=== PATIENT | female | born 1950 | race Caucasian/White ===

== ENCOUNTER 2021-10-29 12:55 | Outpatient (CLI) | payer OTHER, SELFPAY ==
[2021-10-29] VITALS (9 sets, daily range): BP systolic 122–165; BP diastolic 58–72; PULSE 56–61; RESP 12–24; TEMP 36.3; O2SAT 94–99
--- NOTE | 2021-10-29 12:58 | DI.RAD.S_ITS ---
PROCEDURE: PAIN L/S FACET INJ/BLK 1ST CHRISTOPH COMPARISON: [facility], CR, XR LUMBAR SPINE 2 OR 3 VIEWS, 06/22/2021, 14:51. INDICATIONS: SPONDYLOSIS FINDINGS: Fluoroscopic spot filming was performed to verify placement of spinal needles on both sides at the L4-L5 level and at the L5-S1 level, as labeled on the films. Appropriate location of the needle tips was confirmed by injection of iodinated contrast. IMPRESSION: Intraprocedural examination within normal limits. Dictated by: Kevin Faye M.D. on 10/29/2021 at 13:19 Approved by: Kevin Faye M.D. on 10/29/2021 at 13:21
[2021-10-29] MEDS: fentaNYL 100 MCG/2 ML INJ 50 MCG IV (13:37)
[2021-10-29] MEDS: MIDAZOLAM 5 MG/5 ML VIAL IV (13:40)
[2021-10-29] MEDS: IOPAMIDOL 15 ML VIAL 3 ML INJ (13:41)
[2021-10-29] MEDS: LIDOCAINE 1% 20 ML 10 ML INJ (13:43)
[2021-10-29] MEDS: BUPIVACAINE 0.5% (PF) VIAL 5 ML INJ (13:43)
[2021-10-29] MEDS: BETAMETHASONE 30 MG/5 ML MDV 12 MG INJ (13:44)
--- NOTE | 2021-10-29 13:53 | P.PCN_ITS ---
Date/Time/Diagnoses Date of procedure: 10/29/21 Time of procedure: 13:53 Pre-procedure diagnosis: 1. FACET ARTHROPATHY 2. AXIAL LBP 3. MULTILEVEL DDD Post-procedure diagnosis: same Procedure Notes Procedure: 1. FLUOROSCOPICALLY GUIDED CONTRAST CONTROLLED FACET JOINT INJECTIONS BILATERAL L4/5, L5/S1 Indications: Mary is referred by NARENDRA Reynolds for treatment of Axial LBP Physician: Duane Tejeda Total Fluoroscopy time (seconds): 9 Total sedation minutes: 13 Complications: none Procedure in detail & Post-procedure care: FINDINGS Multilevel Facet Arthropathy with Clinically significant axial LBP DESCRIPTION OF PROCEDURE Fluoroscopically guided, contrast-controlled bilateral L4/5, L5/S1 facet joint injections. Following review of allergy and review of potential side effects and complications, including, but not necessarily limited to, infection, allergic reaction, local tissue breakdown, stroke, temporary or permanent nerve injury, paralysis, and possible , the patient indicated that the patient understood and agreed to proceed. An informed consent document was signed by the patient, witnessed by a nurse, and placed in the patient's chart. Additionally, other treatment options including medications, modalities, and physical therapy were reviewed with the patient. After review of previous anaesthesic history and IV conscious sedation the arturo ent was deemed safe to proceed with today?s procedure with IV conscious sedation as ASA class II designation. Safety time-out was performed to confirm patient ID, procedure to be performed and site of procedure. IV sedation was accomplished with a combination of 5mg of Versed and 50mcg of Fentanyl was administered by the RN after DO order, titrated to patient comfort during the course of the procedure while the patient remained responsive to all verbal commands In the prone position, following sterile prep and drape of the lumbar region, the posterior aspect of the L4/5, L5/S1 facet joints were identified fluoroscopically. The skin was anesthetized via a 25-gauge 1.5inch needle with 1% lidocaine solution into the corresponding facet joints. At this point, a 22- gauge 3.5-inch spinal needle was atraumatically introduced and advanced under fluoroscopic guidance into the corresponding facet joints. Following negative aspiration, injections of approximately 0.2cc of Isovue 200 confirmed interarticular placement without vascular uptake. The identical procedure was then performed at the L4/5, L5/S1 facet joints on the left. Radiological data, including multiple fluoroscopic views of the lumbosacral spine, reveal a spinal needle at the L4/5, L5/S1 facet joints bilaterally. Subsequent views show flow of contrast material both superiorly and inferiorly within the joint space without vascular or intrathecal uptake. At this point, a total of 0.5cc including a mixture of 0.25cc Marcaine and 0.25cc betamethasone was injected without complication into each of the corresponding facet joints. The patient tolerated the procedure well without signs or symptoms of complications prior to transfer to the recovery area continued monitoring without incident. The patient was then transferred to the recovery area where they were observed for an appropriate period of time after the injection. The patient reported a VAS score of 7 prior to the procedure and a post- procedure VAS of 0. POST OP INSTRUCTIONS The patient was provided a Pain Log to continue to record their response to the target-specific procedure prior to follow-up visit with their referring physician. Additionally, specific post-injection care instructions and a contact number to our office were provided if concerns arise regarding possible complications associated with the procedure are suspected.
== END 2021-10-29 14:17 | disposition home or self-care (01) ==
LOC: RAD 12:57
PROVIDERS: PCP Nurse Practitioner Family; Referring Provider Physical Medicine & Rehabilitation; Visit Provider Physical Medicine & Rehabilitation
DX: M47.816 Spondylosis without myelopathy or radiculopathy, lumbar region (principal); M47.817 Spondylosis without myelopathy or radiculopathy, lumbosacral region; M51.36 Other intervertebral disc degeneration, lumbar region; M51.37 Other intervertebral disc degeneration, lumbosacral region
CPT/HCPCS: 64493; 64494; 99152; J0702; J2250; J3010

== ENCOUNTER 2023-07-08 13:42 | Inpatient (IN) | payer OTHER, SELFPAY ==
[2023-06-10 12:54] VITALS: BMI 30.4
[2023-07-08] VITALS (17 sets, daily range): BP systolic 122–154; BP diastolic 61–129; PULSE 52–89; RESP 11–97; TEMP 35.7–37.1; O2SAT 15–100; BMI 30.4
--- NOTE | 2023-07-08 | DI.RAD.S_ITS ---
PROCEDURE: XR LUMBAR SPINE 2-3V INDICATIONS: tlif l4-5 TECHNIQUE: Low resolution intraoperative fluoroscopic spot films were obtained COMPARISON: None. FINDINGS: Low resolution intraoperative fluoroscopic spot films show L L4-5 interbody fusion with posterior shalini and screw instrumentation in good position IMPRESSION: Fluoroscopic guidance Approved by: Keyon Fry M.D. on 07/08/2023 at 17:39
[2023-07-08] MEDS: LACTATED RINGERS 1,000 ML 84 ML IV ×2 (14:49→17:36)
--- NOTE | 2023-07-08 15:15 | PM.PREOP ---
Pre-operative Note COVID-19 Criteria for continued procedure: Expected advancement of disease process, Possibility delay results in more complex future surgery or treatment, Increased loss of function, Continuing or worsening of significant or severe pain, Deterioration of the patient's condition or overall health and Delay expected to result in less-positive ultimate med/surg outcome Interval Note History & Physical reviewed/Exam performed by Physician: Yes Changes to H&P: No
[2023-07-08] MEDS: CEFAZOLIN 2 GM/100 ML PREMIX 100 ML IV ×2 (16:10→23:35)
--- NOTE | 2023-07-08 16:19 | SUR.OPER ---
Prone on spine table, head in foam head support, padded chest and pelvic supports, gel pad at knees, lower legs supported by pillows; nipples, genitalia and toes free of pressure, arms secured on foam padded arm boards at <90 degrees abduction. Tape over blanket at thigh secured to table.
[2023-07-08] MEDS: BUPIVACAINE 0.25% (PF) 60 ML, EPINEPHrine 0.15 MG INJ (16:33)
[2023-07-08] MEDS: BUPIVACAINE LIPOSOME 266 MG/20 ML VIAL INJ (17:36)
--- NOTE | 2023-07-08 17:58 | P.OP_ITS ---
Operative Date/Time/Diagnoses Date of procedure: 07/08/23 Time of procedure: 15:00 Pre-op diagnosis: 1. L4-5 spinal stenosis with radiculopathy 2. Lumbar spondylosis with radiculopathy Post-op diagnosis: same Procedure & Clinicians Procedure: 1. L4-5 Postero-lateral and posterior interbody fusion 2. L4-5 interbody cage placement. 3. L4-5 decompressive laminectomy with bilateral facetecomies 4. L4-5 Posterior non-segmental instrumentation 5. Malcolm of bone marrow from iliac crest 6. Utilization of microsurgical technique and operating microscope Same procedure as scheduled: Yes Indications: Patient has been having chronic back pain and worsening lumbar radiculopathy. Patient failed multiple conservative management with worsening pain weakness and numbness in her lower extremity. Patient has been having difficulty performing activity of daily living. After discussing risks benefits of treatment options, patient elected proceed with surgery. Surgeon: Mae Pacheco Compliance Program Manager: Delphine Rasmussen Click Yes if Unassisted: No Anesthesia Type: General Operative Notes Closure Type: primary Specimen(s): none sent Prosthetic devices, grafts, tissues, transplants, or devices: Globus revolve screws, Rise cage Estimated Blood Loss (mL): 50 Blood products transfused: none Procedure in detail: Patient was seen in the preoperative area. Risks and benefits of the surgery was discussed with the patient. Informed consent was obtained from the patient and placed in the chart. Surgical site was marked. Patient was taken to the operative room. General anesthesia was administered. Prophylactic antibiotic was given to the patient less than 30 min before the incision was made. Patient was placed into a prone position on the Bill table. Patient's back was then prepped and draped in the sterile fashion. Time-out was performed at this time. Using AP and lateral C-arm imaging the interval between L4-5 was identified and marked on patient's back. A 2 inch incision 2 in from midline was made on the left side first. The fascia was incised in line with skin incision. Globus MARS retractors was placed inside the incision and docked onto the L4 lamina. Using microsurgical technique and operating microscope, a L4 laminectomy and L4-5 facetectomy was performed using a Kerrison rongeur. The laminectomy and facetectomy was performed in order to decompress patient's cauda equina as well as the nerve roots exiting at the L4-5 level. The disc space at L4-5 was identified. And a total diskectomy was performed at L4-5 level. The endplates were decorticated using a rasp and shaver. The total diskectomy and decortication was performed at L4-5 level in order to to accomplish a L4-5 fusion. The local bone from the laminectomy and facetectomy was saved for local bone grafting. After the total diskectomy and decortication was completed, Trifecta bone graft material was combined with local bone that was harvested earlier. At this time, a separate skin is incision was made over the iliac crest. A Jamshidi needle was inserted into the iliac crest through a separate skin incision. 5 cc of bone marrow aspiration was obtained through the separate skin incision using a Jamshidi needle from the iliac crest. The bone marrow aspiration was combined with local bone and the Trifecta bone grafting material. The bone grafting material was placed into the L4-5 interbody space along with a expandable cage. The cage was expanded to its maximum height using the torque limiting screwdriver. At this time a mirror image incision was made on the right side. The fascia was incised in line with the skin incision. Globus MARS retractor was inserted and docked onto the L4-5 posterolateral gutter. Using the power drill, posterior- lateral decortication was performed at L4-5 level until bleeding cortical bone was identified. The remaining bone grafting material was placed into the L4-5 posterior lateral gutter he order to accomplish posterolateral fusion at the L4- 5 level. Using the double C-arm technique, pedicle screws were placed into the L4-5 pedicles bilaterally. This was done by placing the Jamshidi needle into the pedicles, then placing the guidewires over the Jamshidi needle, and finally placing the cannulated screws over the guidewires bilaterally. After the pedicle screws were placed, 2 titanium rods was locked into the heads of the pedicle screws using locking caps and torque limiting screwdriver. After all the hardware was placed, and confirmed with AP and lateral C-arm imaging, the wound was then irrigated with sterile normal saline and packed with Ray-Claudia gauze for 3 min to accomplish hemostasis. After the gauze was removed the deep fascia was closed with #1 Vicryl suture. The subcutaneous layer was closed with 2-0 Vicryl. The skin was closed with skin zari. Patient tolerated the procedure well. There were no complications. The Operation could not have been safely performed without compromising the technical result or length of the procedure, without the assistance of a skilled assistant professor of biochemistry. The assistant professor of biochemistry was medically necessary for proper positioning, retraction and manipulation of instruments, proper exposure, surgical preparation, and manipulation of tissue. Complications: none Post-operative Condition: stable Disposition: PACU Plan for aftercare: Admit to inpatient hospital
[2023-07-08] MEDS: fentaNYL 100 MCG/2 ML INJ IV ×2 (18:15→18:26)
[2023-07-08] MEDS: hydrOXYzine 50 MG/ML INJ 25 MG IM (18:28)
[2023-07-08] MEDS: HYDROMORPHONE 1 MG INJ IV ×4 (18:33→19:04)
[2023-07-08] MEDS: ONDANSETRON 4 MG/2 ML INJ IV (18:38)
[2023-07-08] MEDS: ACETAMINOPHEN 325 MG TABLET 650 MG PO (20:27)
[2023-07-08] MEDS: hydrOXYzine pamoate 25 MG CAPSULE PO (20:28)
[2023-07-08] MEDS: OXYCODONE IR 10 MG TABLET PO (20:28)
[2023-07-08] MEDS: LACTATED RINGERS 1,000 ML 125 ML IV (20:47)
--- NOTE | 2023-07-08 21:02 | SUR.PHASEI ---
Pt transferred to floor via bed on 2L oyxgen by Priscilla OLIVAS after SBAR report called to Adele OLIVAS.
[2023-07-08] MEDS: HYDROMORPHONE 0.5 MG INJ IV (22:46)
[2023-07-09] MEDS: TRAZODONE 50 MG TABLET 25 MG PO (01:04)
[2023-07-09] MEDS: OXYCODONE IR 10 MG TABLET PO ×5 (01:04→15:08)
[2023-07-09] MEDS: hydrOXYzine pamoate 25 MG CAPSULE PO ×4 (01:04→15:07)
[2023-07-09 03:08] VITALS: BP 107/54; PULSE 66; RESP 20; O2SAT 94
[2023-07-09] MEDS: ACETAMINOPHEN 325 MG TABLET 650 MG PO ×2 (04:46→10:55)
[2023-07-09] MEDS: LACTATED RINGERS 1,000 ML 125 ML IV (05:44)
[2023-07-09] MEDS: HYDROMORPHONE 0.5 MG INJ IV ×2 (05:54→12:26)
[2023-07-09 06:08] VITALS: BP 114/57; PULSE 72; RESP 20; TEMP 36.2; O2SAT 96
[2023-07-09 07:40] VITALS: O2SAT 96
[2023-07-09 08:00] VITALS: BP 135/73; PULSE 79; RESP 17; TEMP 36.9; O2SAT 93
[2023-07-09] MEDS: AMLODIPINE 5 MG TABLET 10 MG PO (08:23)
[2023-07-09] MEDS: METOPROLOL ER 25 MG TABLET 12.5 MG PO (08:24)
[2023-07-09] MEDS: SPIRONOLACTONE 25 MG TABLET PO (08:24)
[2023-07-09] MEDS: CEFAZOLIN 2 GM/100 ML PREMIX 100 ML IV (08:25)
[2023-07-09] MEDS: CALCIUM CARBONATE 500 MG TAB PO ×2 (08:50→13:37)
[2023-07-09 09:55] VITALS: BP 123/59; PULSE 65
--- NOTE | 2023-07-09 10:15 | PT.IIE ---
Current Diagnoses Spondylolisthesis, lumbar region (07/08/23) Spinal stenosis, lumbar region with neurogenic claudication (07/08/23) Surgery Performed Operation Date: 07/08/23 14:45 Actual Procedures p L4-5 TLIF - Mae Pacheco MD Surgical History (Last Reviewed 07/09/23 @ 10:44 by Delphine Rasmussen PA-C) H/O elbow surgery H/O foot surgery H/O wrist surgery H/O: hysterectomy (~1987) History of cholecystectomy History of hernia surgery History of tracheostomy (05/12/10) Medical History (Last Reviewed 07/09/23 @ 10:44 by Delphine Rasmussen PA-C) Cardiomyopathy Chronic pain syndrome Facet arthropathy, lumbar History of anxiety History of bradycardia History of cognitive deficit (~02/06/19) History of depression History of drug dependence (~09/02/17) History of fibromyalgia History of gastroesophageal reflux (GERD) History of heart failure History of osteoporosis (~07/28/20) History of peritonitis (~2009) HTN (hypertension) Hx SBO (~03/29/15) Impingement syndrome of right shoulder Infected prosthetic mesh of abdominal wall Lumbar radiculopathy Ventricular bigeminy (~12/17/16) Physical Therapy Inpatient Evaluation/Re-Eval M1 PT/OT-IP Prior Functional Status Start: 07/09/23 13:13 Freq: NEEDED Status: Active Protocol: Document 07/09/23 10:15 AB (Rec: 07/09/23 13:37 AB [id number]) Medical Review Prior Functional Status Medical History Reviewed Yes Communication able to make needs known; Mobility and Gait pt stated that she is independent with all mobitlies and ambulation using a 4WW; occasionally ambulates without AD indoors but tends to furniture cruise Social History Household Members spouse Living Arrangements House Number of Floors (Floors) Two Floors Number of Stairs To Enter/Railing? not steps to enter but has 2 steps without rails from rec room to main level of the house Home Environment Standard Height Toilet,Walk in Shower Home Equipment Front Wheel Walker,Four Wheel Walker,Straight Cane,Shower Seat without Backrest,Grab Bars In Shower Additional Social History Comment pt stated that spouse has Alzheimer's disease and is limited to the assistance he can provide pt pt stated that her daughter can stay over the weekend to assist M2 PT-IP Current Condition Start: 07/09/23 13:13 Freq: NEEDED Status: Active Protocol: Document 07/09/23 10:15 AB (Rec: 07/09/23 13:37 AB [email or web address]) Physical Therapy Current Condition Current Condition Evaluation Date 07/09/23 Treatment Diagnosis s/p L4-5 TLIF; difficulty in walking Onset Date 07/08/23 M3 PT-IP Subjective Start: 07/09/23 13:13 Freq: NEEDED Status: Active Protocol: Document 07/09/23 10:15 AB (Rec: 07/09/23 13:37 AB [email or web address]) Subjective Physical Therapy Visit Type Type Initial Evaluation Visit Start Time 10:15 Visit Stop Time 11:00 Total Visit Minutes 45 Number of INSURANCE ASSOCIATE Visits 0 Physical Therapy Visit Comments Patient Comments agreeable to do PT; stated that spouse can assist him and daughter can come to assist but when asked for caregiver training, stated that spouse will not be able to assist and daughter can only assist over the weekend; refused SNF Therapy Pain Assessment Pain When Pain Assessed At Rest Pain Present Pain Present Pain Reported Location low back Intensity 6 Scale Used Numeric (0 - 10) Pain Management Techniques Distraction,Modification of Treatment,Re-positioning, Timing of Activity with Medications M4 PT-IP Mobility and Gait Start: 07/09/23 13:13 Freq: NEEDED Status: Active Protocol: Document 07/09/23 10:15 AB (Rec: 07/09/23 13:37 AB [email or web address]) PT-Bed Mobility Assessment Rolling Type of Rolling Log Rolling Level of Assist Minimal Assistance Supine to Sit Supine to Sit Minimal Assistance PT-Transfer Assessment Sit to and From Stand Sit to and from Stand Minimal Assistance,1 Person Assistance,Use of Upper Extremities Equipment Transfer Assistive Device Gait Belt,Front Wheeled Walker Orthotic/Prosthetic Devices or Brace: No Transfers Transfer Destination Chair Transfer Technique ambulated Transfer Ability Level of Assist Minimal Assistance,1 Person Assistance,Use of Upper Extremities Comments Mobility Comments pt educated on back precautions and log roll bed mobility. pt easily gets anxious and easily distracted. completed log roll supine to sit min A and max cues. able to sit on EOB CGA. completed sit to stand min A and max cues and ambulated towards the chair ~ 15 ft using FWW min A and max cues for steadiness and safety. pt agreed to sit up on the chair. positioned on the chair. call light and table placed within reach. pt initially stated that her spouse will be able to assist her and daughter also can come to assist if needed. informed pt that caregiver training is needed and pt stated that spouse will not be able to assist her and daughter also can only assist this weekend and that PT needs to do training with her and not spouse or daughter. educated pt on safety level of assistance needed at this time. informed regarding SNF rehab and pt refused. informed pt to call her daughter and ask daughter to come in for training and that her daughter might be able to assist her more that she thinks. pt agreed. nurse informed PT that daughter will be coming at 230pm today for training. set up caregiver training. pt stated that she will call her daughter to come. Gait Assessment Gait Gait Assistance Required: Minimum Assistance Distance (Feet) 15 Able to Maintain Weight Bearing Status Yes During Gait Assistive Devices Assistive Device Gait Belt,Front Wheeled Walker Orthotic/Prosthetic Devices or Brace: No Gait Deviations General Gait Pattern Decreased Stride Length, Decreased Feet Clearance,Step- to Gait Factors Limiting Gait Function Factors Limiting Gait Function Decreased Activity Tolerance, Decreased Sensation,Decreased Strength,Difficulty Following Directions,Limited Range of Motion,Pain,Poor Balance,Poor Safety Awareness PT-Balance Assessment Sitting Balance and Reactions Static Sitting Balance Ability Good Dynamic Sitting Balance Ability Good Standing Balance and Reactions Static Standing Balance Ability Fair Dynamic Standing Balance Ability Fair Device Used FWW M5 PT-IP Objective Assessments Start: 07/09/23 13:13 Freq: NEEDED Status: Active Protocol: Document 07/09/23 10:15 AB (Rec: 07/09/23 13:37 AB [email or web address]) Orientation Orientation/Cognition Level of Alertness Alert Orientation Name,Place,Situation Language Function Ability Hard of Hearing Safety Awareness Decreased Safety Awareness Memory Description Short Term Impaired Gross Range of Motion Lower Extremity ROM Assessment Within Functional Limits Strength Lower Extremity Strength Assessment Right Impaired Hip 3-/5 Knee 3+/5 Sensation Assessment Sensation Gross Sensation Right LE Impaired Sensation Description Numbness Comments Sensation Comments chronic R foot numbness per pt . Muscle Tone Muscle Tone WNL Yes M6 PT-IP Treatment Start: 07/09/23 13:13 Freq: NEEDED Status: Active Protocol: Document 07/09/23 10:15 AB (Rec: 07/09/23 13:37 AB [email or web address]) Physical Therapy Treatment Education Education Provided Precautions,Weight Bearing Status,Post-Op Packet,Safety M7 PT-IP Assessment and Plan Start: 07/09/23 13:13 Freq: NEEDED Status: Active Protocol: Document 07/09/23 10:15 AB (Rec: 07/09/23 13:37 AB [email or web address]) PT Summary Assessment and Plan Potential Rehabilitation Potential Fair Status of Condition at Evaluation Evolving Summary Impairments Pain,ROM,Strength,Balance, Coordination,Sensation,Tone, Cognition,Bed Mobility, Transfers,Gait,Activity Tolerance Assessment Summary pt is a 73 y/o female s/p L4-5 TLIF. pt currently requiring min A with mobility using FWW but requires max cues. pt is very anxious and easily distracted requring one step commands and redirection to task. pt stated that she does not have assistance at home but also refused to go to SNF. informed pt to ask her daughter to come in for training and maybe daughter will be willing to stay and assist her. Daughter set up to come in at 230pm for caregiver training. will continue to assess progress and determine safe dc paln. Goals Bed Mobility Goal Standby Assistance Transfer Goal Standby Assistance,Front Wheeled Walker Gait Goal Standby Assistance,Front Wheel Walker Gait Distance 150 Other Goals improve bed mobility, transfers, ambulation using FWW 250 ft mod I up/down 2 steps SPC/COIL REWIND MACHINE OPERATOR CGA Days to Meet Goals 5 Frequency of Treatment Frequency Of Treatment Twice a Day Treatment Plan Physical Therapy Treatment Plan Bed Mobility Training,Transfer Training,Gait Training, Therapeutic Exercise,Balance Retraining,Post Op Education, Discharge Planning,Hot or Cold Pack,Neuromuscular Re-ed, Coordination Retraining,Manual Therapy Precautions Lumbar Precautions Log Roll,No Twisting,Limit Bending,Lifting Restriction of 10 lbs,Gait Belt above Incisional Area Recommendations To Nursing Amount of Assist Needed 1 Person Assist Discharge Recommendations PT Discharge Recommendations Home with 16/05 Assist Available,Home Health,SNF Rehab,Home vs SNF Transportation Needs at Discharge Private Vehicle,Wheelchair/ Cabulance
--- NOTE | 2023-07-09 10:40 | P.DS_ITS ---
History of Present Illness History of Present Illness Date Patient Seen: 07/09/23 Chief complaint: TLIF Narrative: Patient is sitting up comfortably in bed this morning. She states she is not having much pain if she does not move. Since she was in much worse pain before surgery. She states she has not worked with physical therapy though she is feeling good and expects it to go well. She denies numbness and tingling to the distal extremities, denies nausea and vomiting. Discharge Providers Provider Date of admission: 07/08/23 13:42 Discharge Date: 07/09/23 Primary care physician: NARENDRA Abreu Consults: 07/08/23 19:56 Consult to Occupational Therapy Evaluate & Treat Comment: Physician Instructions: Evaluate and treat Consult to Physical Therapy Evaluate & Treat Comment: Physician Instructions: Evaluate and Treat 07/08/23 21:38 Consult to Dietitian, Adult Routine Comment: Reason For Exam: unintentional weight loss, no appetite Consult to Water Resources Business Segment Leader Routine Comment: Discharge provider: Delphine Rasmussen PA-C Summary Hospital Course Discharge Diagnosis: Status post 1 level TLIF Hospital Course: Operative Date/Time/Diagnoses Date of procedure: 07/08/23 Time of procedure: 15:00 Pre-op diagnosis: 1. L4-5 spinal stenosis with radiculopathy 2. Lumbar spondylosis with radiculopathy Post-op diagnosis: same Procedure & Clinicians Procedure: 1. L4-5 Postero-lateral and posterior interbody fusion 2. L4-5 interbody cage placement. 3. L4-5 decompressive laminectomy with bilateral facetecomies 4. L4-5 Posterior non-segmental instrumentation 5. Mason of bone marrow from iliac crest 6. Utilization of microsurgical technique and operating microscope Same procedure as scheduled: Yes Indications: Patient has been having chronic back pain and worsening lumbar radiculopathy. Patient failed multiple conservative management with worsening pain weakness and numbness in her lower extremity.? Patient has been having difficulty performing activity of daily living.? After discussing risks benefits of treatment options, patient elected proceed with surgery. Surgeon: Mae Pacheco Refractory Worker: Delphine Rasmussen Click Yes if Unassisted: No Anesthesia Type: General Operative Notes Closure Type: primary Specimen(s): none sent Prosthetic devices, grafts, tissues, transplants, or devices: Globus revolve screws, Rise cage Estimated Blood Loss (mL): 50 Blood products transfused: none Exam Vital Signs (past 8 hours): - 07/09/23 03:08 07/09/23 06:08 07/09/23 07:40 Temperature 97.1 F L Pulse Rate 66 72 Respiratory Rate 20 20 Blood Pressure 107/54 L 114/57 L Pulse Oximetry 94 96 96 Oxygen Delivery Method Nasal Cannula Oxygen Flow Rate 1 1 1 07/09/23 08:00 07/09/23 08:24 07/09/23 09:55 Temperature 98.4 F Pulse Rate 79 65 Respiratory Rate 17 Blood Pressure 135/73 123/59 L Pulse Oximetry 93 Oxygen Delivery Method Room Air Oxygen Flow Rate 1 Oxygen Delivery Method Room Air Oxygen Flow Rate 1 Narrative Exam Narrative: Pleasant 73-year-old female. Awake, alert, and oriented. Intraoperative bandage intact, some serosanguineous discharge. Strength and sensation intact to bilateral lower extremities. Bilateral calves soft, compressible, nontender with no palpable cords or masses. [facility] Medical History Cardiomyopathy Chronic pain syndrome Facet arthropathy, lumbar History of anxiety History of bradycardia History of cognitive deficit (~02/06/19) History of depression History of drug dependence (~09/02/17) History of fibromyalgia History of gastroesophageal reflux (GERD) History of heart failure History of osteoporosis (~07/28/20) History of peritonitis (~2009) HTN (hypertension) Hx SBO (~03/29/15) Impingement syndrome of right shoulder Infected prosthetic mesh of abdominal wall Lumbar radiculopathy Ventricular bigeminy (~12/17/16) Surgical History H/O elbow surgery H/O foot surgery H/O wrist surgery H/O: hysterectomy (~1987) History of cholecystectomy History of hernia surgery History of tracheostomy (05/12/10) Family History Father Congestive heart failure Mother Hypertension Grandmother Cancer Hypertension Congestive heart failure Social History household members: spouse Smoking Status: Former smoker alcohol intake: never Discharge Assessment & Plan Assessment and Plan Assessment: Patient is progressing well following 1 level TLIF, postoperative day 1 Plan of Treatment: Patient may discharge home when safe and cleared by Physical therapy. She is confident that this will be today. Continue multimodal pain regimen as needed. Follow up with Orthopedics 2 weeks after surgery. Discharge Plan Discharge Plan Patient Disposition: Home Provider Discharge Comment: Discharge home when safe and cleared by Physical therapy Discharge orders & Medications Prescriptions: New hydroxyzine pamoate 25 mg Capsule 25 mg PO Q4HR PRN (Reason: Nausea And Vomiting) Qty: 40 0RF oxycodone 5 mg tablet 5 mg PO Q4H PRN (Reason: pain) Qty: 40 0RF Continued alprazolam 0.5 mg tablet 0.5 mg PO BID PRN (Reason: anxiety) acetaminophen 325 mg capsule 650 mg PO Q6H PRN (Reason: pain) alprazolam 0.5 mg tablet 0.5 mg PO BID amlodipine 10 mg tablet 10 mg PO DAILY metoprolol succinate 25 mg tablet extended release 24 hr 12.5 mg PO DAILY spironolactone 25 mg tablet 25 mg PO DAILY albuterol sulfate 90 mcg/actuation aerosol powdr breath activated 2 inh inhalation Q6H PRN (Reason: pain) trazodone 50 mg tablet 25 mg PO BEDTIME PRN (Reason: pain) hydrochlorothiazide 25 mg tablet 25 mg PO DAILY ergocalciferol (vitamin D2) 1,250 mcg (50,000 unit) capsule 1,250 mcg PO QWEEK Rx Instructions: twice a week Discontinued oxycodone 5 mg Tablet 5 mg PO Q6H PRN (Reason: pain) Follow up/Referrals: Tiny Reynolds ARNP [Primary Care Provider] - Mae Pacheco MD [Physician] - 2 Weeks Diet/Activity/Treatments Diet: Diet as Tolerated Activity: Up and walking as tolerated. no deep bending, twisting, or lifting over 10 pounds Cold/Heat Therapy: Heating pad to back as needed Skin/Wound/Dressing Care Report to your healthcare provider any signs of infection, such as:: chills, fever, night sweats, unusual drainage and unusual redness Dressing: Keep dressing clean and dry. If it becomes saturated you may remove it and replace with dry gauze. Visit Report/Discharge Packet Instructions: DI for Transforaminal Lumbar Interbody Fusion Stand Alone Forms: Patient Portal/API, Stroke Signs & Symptoms, Surgery Discharge Discharge Data Primary Care Provider: Tiny Reynolds VTE Deep Vein Thrombosis/Pulmonary Embolism Present on Admission: No
--- NOTE | 2023-07-09 11:18 | CM.DANOTE ---
Addendum entered by Araceli Nava R.N. 07/09/23 13:56: 1356 met with patient who states concern about going home, but affirms that daughter from [place] can stay with her over weekend, and her can assist with support to bathroom. She is concerned about steps up/down to BR but will be working with BIOLOGICS SPECIALIST for caregiver training with daughter shortly. Resource packet offered for future aging in place planning as she states that she wants to remain in her home with her who has early dementia. Agrees to SNF or HH IF indicated but really wants to return home. DCP pending caregiver training today. Original Note: DCP: Chart review for case, met with patient at bedside, they agree to case management assessment. Completed DCP assessment based on information available. Patient is a 73 year old admitted for planned lumbar fusion with Dr. Pacheco. Has her own 4WW at bedside, but states she also has cane and an ?old fashioned? FWW at home. States daughter who lives in [place] is a support and will likely be medical delivery driver home. States her also drives but is not ?doing well? and needs some of her support. States concern for walking to BR in single level home with 2 sunken areas with 1 step. Plan for PT eval this am. PCP: Tiny Reynolds Payer: Hilario DME: FWW, 4WW, cane DCP: Home with family, prefers OP PT, pending PT eval today. Araceli Nava RN, CM Discharge Planning/Care Management CM Discharge Assessment Start: 07/09/23 11:15 Freq: Status: Active Protocol: Document 07/09/23 11:15 ALESSANDRA (Rec: 07/09/23 11:17 ALESSANDRA [id number]) Discharge Planning Assessment Assigned Analytical Research Program Manager Araceli Nava RN, CM Advance Directives? No History Provided By Patient Has Patient been admitted in last 30 No days? Prior Living Arrangements House Household Members spouse Type of transporation used prior to Drives own vehicle admit Independent with ADL's Yes Is patient alert and oriented? Yes Caregiver for Another Yes: at home and not doing well. Community Services used prior to Physical Therapy admission: DME Already Rented / Owned FWW / Walker,Cane,Other Comment 4WW Barriers to Discharge No Discharge Plan Home Referrals Initiated None needed Whiteboard Updated in Patient Room with Yes name and ext. # of Analytical Research Program Manager Review Status In Process Next Review Type Continued Stay Review Pre-Anesthesia Assessment Start: 06/10/23 12:54 Freq: Status: Active Protocol: Document 06/10/23 12:54 TC (Rec: 06/10/23 14:18 TC [id number]) Pre-Anesthesia Assessment Patient Information Reviewed Via Phone Assessment Assessment Completed With Patient Primary Care Provider Tiny Reynolds Seen Specialist in Last 12 Months Yes Specialist Seen Aircraft Engine Cylinder Mechanic,Acting Instructor, General surgeon,Orthopedist, Urologist Primary Language French Preferred Language French Cargo Router Required No Height 163.83 cm Weight 81.647 kg Body Mass Index (BMI) 30.4 Hearing Ability Hearing Impaired,Use of Hearing Aid Visual Impairment Partially Limited Visual Assist Glasses Dentition Type Full- Lower,Full- Upper Barriers to Learning None Other Aids No Hx Anesthesia Reactions Yes: propofol and reglan after a procedure caused changes in orientation Hx Family Anesthesia Reaction No Hx Malignant Hyperthermia No Hx Blood Transfusions No Hx Blood Transfusion Reaction No Anesthesia Review Requested No Animal Cruelty Investigator No alcohol intake never Smoking Status Former smoker how long ago did patient quit smoking 1991 Substance Use Type tranquilizers,prescription drug Pain Present Pain Reported Musculoskeletal Symptoms Abnormal Gait,Back Pain, Difficulty Walking,Muscle Spasms,Muscle Weakness, Numbness,Radiating Pain into Limb,Tingling History of Falling (Recent or History of No ) Patient is completely paralyzed or No completely immobile Ambulatory Aid Crutches/cane/walker Prosthesis or Orthotic Device Front Wheel Walker Gait/Transferring Weak Mental Status Oriented to own ability Is patient on oxygen? No Does patient have TURCIOS/SOB No Hx Sleep Apnea No CPAP/BIPAP use not prescribed Currently Taking a Beta Alison Yes Can You Climb a Flight of Stairs Without Yes SOB Hx Chest Pain No Hx SOB No Hx Syncope or Dizziness No Anti-Coagulant Therapy No Has a Aircraft Engine Cylinder Mechanic Yes Aircraft Engine Cylinder Mechanic name Arlen Cardiac Testing Yes Hx Pacemaker/ICD No Pacemaker Rep Required? No Diet Type At Home Regular Dysphagia Yes: due to the dentures Gastrointestinal Symptoms Abdominal Pain,Change in Stool Characteristics Comment HX of multiple SBO- had surgery to help in March 2023 Genitourinary Symptoms Frequency Bladder Pattern Frequency,Incontinent,Urgency Urinary Catheter Present No Hx Urinary Self Catheterization No Diabetes Yes: Pt states she was once determined to be Diabetic- no meds Patient No Lactating No Hx Drug Resistant Organism No Presence of External or Internal Medical Yes: abdominal mesh Devices Have you had any close contact with No someone diagnosed with COVID-19? Are you experiencing any of these No symptoms symptoms? Evaluation/Screening for possible COVID- Yes 19 infection completed? Received a COVID vaccine? Yes Received all doses? Yes Marital Status Lives With spouse Current Living Arrangements House Number of Floors (Floors) One Floor Number of Stairs To Enter/Railing? has some sunken room with 1-2 steps but she could avoid it if needed Support System Family Does the Patient Have Assistance After Yes: her spouse will be there, Surgery children will check in Patient Discharge Plan Description Return Home Feels Safe in Current Environment Yes Been Physically Hurt or Threatened By a No Person in Current Environment If Yes, Provider Notified No Do you have thoughts of harming yourself None or others? Are you currently considering suicide? No Do you have a plan to hurt yourself or No Plan others? If Yes, Provider Notified No Do You Have Any Spiritual Beliefs That No May Affect Your HC Choices? Do You Have Any Cultural Practices That No May Affect Your HC Choices? Spiritual Referral None Comment [facility] Proxy/Next of Kin [facility] Proxy Emergency Contact Name Octavio Emergency Contact or [phone] Advance Directives? No Power of Senior Ui Ux Designer No PAC Instructions Do not shave/clip surgical site,Durable medical equipment ,Medications to take/avoid, Nasal antibiotic,No ETOH/ petroleum product on skin DOS, NPO,Pre-surgical wash,Sensory aids,Sturdy shoes/comfortable clothes,Do not bring valuables and remove jewelry
--- NOTE | 2023-07-09 14:25 | PT.IPTN ---
Current Diagnoses Spondylolisthesis, lumbar region (07/08/23) Spinal stenosis, lumbar region with neurogenic claudication (07/08/23) Surgery Performed Operation Date: 07/08/23 14:45 Actual Procedures p L4-5 TLIF - Mae Pacheco MD Physical Therapy Treatment Note M2 PT-IP Current Condition Start: 07/09/23 13:13 Freq: NEEDED Status: Active Protocol: Document 07/09/23 10:15 AB (Rec: 07/09/23 13:37 AB [id number]) Physical Therapy Current Condition Current Condition Evaluation Date 07/09/23 Treatment Diagnosis s/p L4-5 TLIF; difficulty in walking Onset Date 07/08/23 M3 PT-IP Subjective Start: 07/09/23 13:13 Freq: NEEDED Status: Active Protocol: Document 07/09/23 15:17 TS (Rec: 07/09/23 15:52 TS [id number]) Subjective Physical Therapy Visit Type Type Treatment Note Visit Start Time 14:25 Visit Stop Time 15:05 Total Visit Minutes 30 Notes Daughter present for caregiver training. Number of COMMERCIAL ACCOUNT MANAGER Visits 1 Physical Therapy Visit Comments Patient Comments Pt found resting in bed, daughter present, pt reports her pain is feeling better and she would like to go home. Pt is agreeable to PT. Therapy Pain Assessment Pain When Pain Assessed At Rest Pain Present Pain Present Pain Reported Location low back Intensity 5 Scale Used Numeric (0 - 10) Description Aching Pain Management Techniques Distraction,Modification of Treatment,Re-positioning, Timing of Activity with Medications M4 PT-IP Mobility and Gait Start: 07/09/23 13:13 Freq: NEEDED Status: Active Protocol: Document 07/09/23 15:17 TS (Rec: 07/09/23 15:52 TS [id number]) PT-Bed Mobility Assessment Rolling Type of Rolling Log Rolling Level of Assist Standby Assistance Supine to Sit Supine to Sit Standby Assistance Sit to Supine Sit to Supine Standby Assistance Scooting Scooting to Edge of Bed Standby Assistance PT-Transfer Assessment Sit to and From Stand Sit to and from Stand Standby Assistance,Use of Upper Extremities Equipment Transfer Assistive Device Gait Belt,Front Wheeled Walker Orthotic/Prosthetic Devices or Brace: No Comments Mobility Comments Pt found resting in bed agreeable to PT. Pt recalled 3 /3 spinal precautions prior to mobility. She performed logroll SBA with use of handrail, she dmeonstrated good carryover from previous session. Supine to sit SBA with BUE support, cues provided for LEs over EOB when coing into sitting. Instructed daughter in proper donning og gait belt. Pt performed sit to stand x2 SBA from bed and toilet, pt is impulsive to stand before therapist and daughter are ready. She ambulated ~150'SBA w/FWW with an emerging step thru gait, pt had no buckling or LOB. Pt ambulated back to room to perform steps. She performed steps ascending and descending on platform step with use of cane CGA x4 and SBA x4. Pt is slightly unsteady descending step SBA with use cane but has no LOB. Sit to supine into bed SBA, pt performed logroll supine into bed. Pt was left in bed with call light nearby, daughter in room, RN notified. Gait Assessment Gait Gait Assistance Required: Standby Assistance Distance (Feet) 150 Able to Maintain Weight Bearing Status Yes During Gait Assistive Devices Assistive Device Gait Belt,Front Wheeled Walker Orthotic/Prosthetic Devices or Brace: No Gait Deviations General Gait Pattern Decreased Stride Length, Decreased Feet Clearance Factors Limiting Gait Function Factors Limiting Gait Function Decreased Activity Tolerance, Decreased Sensation,Decreased Strength,Difficulty Following Directions,Limited Range of Motion,Pain,Poor Balance,Poor Safety Awareness Comments Gait Comments See mobility comments. Stair Climbing Assessment Evaluation Level of Assist On Stairs Standby Assistance,Contact Guard Assistance Devices Stair Climbing Assistive Devices Straight Cane Technique/Endurance Stair Climbing Direction Ascend and Descend Stair Climbing Technique Step to Step Number of Steps Climbed 8 Comments Stair Climbing Comments Pt ascended and descended x4 CGA and x4 SBA with use of cane. Pt has no railing for support. Daughter stated she could have one put in tomorrow . See mobility comments. PT-Balance Assessment Sitting Balance and Reactions Static Sitting Balance Ability Good Dynamic Sitting Balance Ability Good Standing Balance and Reactions Static Standing Balance Ability Good Dynamic Standing Balance Ability Fair Device Used FWW M5 PT-IP Objective Assessments Start: 07/09/23 13:13 Freq: NEEDED Status: Active Protocol: Document 07/09/23 10:15 AB (Rec: 07/09/23 13:37 AB [id number]) Orientation Orientation/Cognition Level of Alertness Alert Orientation Name,Place,Situation Language Function Ability Hard of Hearing Safety Awareness Decreased Safety Awareness Memory Description Short Term Impaired Gross Range of Motion Lower Extremity ROM Assessment Within Functional Limits Strength Lower Extremity Strength Assessment Right Impaired Hip 3-/5 Knee 3+/5 Sensation Assessment Sensation Gross Sensation Right LE Impaired Sensation Description Numbness Comments Sensation Comments chronic R foot numbness per pt . Muscle Tone Muscle Tone WNL Yes M6 PT-IP Treatment Start: 07/09/23 13:13 Freq: NEEDED Status: Active Protocol: Document 07/09/23 15:17 TS (Rec: 07/09/23 15:52 TS [id number]) Physical Therapy Treatment Education Education Provided Precautions,Weight Bearing Status,Post-Op Packet,Safety M7 PT-IP Assessment and Plan Start: 07/09/23 13:13 Freq: NEEDED Status: Active Protocol: Document 07/09/23 15:17 TS (Rec: 07/09/23 15:52 TS [id number]) PT Summary Assessment and Plan Potential Rehabilitation Potential Good Summary Impairments Pain,ROM,Strength,Balance, Coordination,Sensation,Tone, Cognition,Bed Mobility, Transfers,Gait,Activity Tolerance Progress Towards Goals Progressing Toward Goals Assessment Summary Mary made progress with her mobility this session. She recalled 3/3 spinal precautions prior to mobility. She performed all bed mobility SBA with some cueing for supine to sit. She does demonstrate good carryover of logroll sequencing. She performed sit to stand SBA w/ FWW, pt is impulsive to move before therapist is ready. She progressed her gait to ~150 SBA w/FWW, had no buckling or LOB. She progressed her stairs to x4CGA with use of cane and x4 SBA with use of cane on platform step. Pt is unsteady with use of cane and SBA when descending steps. Daughter was educated on assisting pt with bed mobility, sit to stands, donning of gait belt, gait and step sequencing. PT is recommending Home 24/7 w/ assist and HH vs SNF at this time. Pt has daughter to assist her for the weekend but will be up to spouse to assist her after that. Spouse could not come to hospital for caregiver training today. Daughter and pt report that spouse will be able to assist pt if she needs it. Recommended installing grab bars in home for use of stairs and getting on/off toilet. She could benefit from SNF rehab before d/c home with more independence due to decreased strenght and poor safety awareness. Pt states she will not go to rehab. Goals Bed Mobility Goal Standby Assistance Transfer Goal Standby Assistance,Front Wheeled Walker Gait Goal Standby Assistance,Front Wheel Walker Gait Distance 150 Other Goals improve bed mobility, transfers, ambulation using FWW 250 ft mod I up/down 2 steps SPC/DATA ABSTRACTOR CGA Days to Meet Goals 5 Frequency of Treatment Frequency Of Treatment Twice a Day Treatment Plan Physical Therapy Treatment Plan Bed Mobility Training,Transfer Training,Gait Training, Therapeutic Exercise,Balance Retraining,Post Op Education, Discharge Planning,Hot or Cold Pack,Neuromuscular Re-ed, Coordination Retraining,Manual Therapy Precautions Lumbar Precautions Log Roll,No Twisting,Limit Bending,Lifting Restriction of 10 lbs,Gait Belt above Incisional Area Recommendations To Nursing Amount of Assist Needed 1 Person Assist Discharge Recommendations PT Discharge Recommendations Home with 24/ Assist Available,Home Health,SNF Rehab,Home vs SNF Other Discharge Recommendations Grab bars for steps and in bathroom for at home. Equipment Needed for Home Before Pt reports having commode, FWW Discharge and 4WW. Transportation Needs at Discharge Private Vehicle,Wheelchair/ Cabulance
== END 2023-07-09 16:22 | disposition home or self-care (01) | DRG 454 ==
PROVIDERS: Admitting Provider Orthopaedic Surgery Orthopaedic Surgery of the Spine; PCP Nurse Practitioner Family; Referring Provider Orthopaedic Surgery Orthopaedic Surgery of the Spine; Visit Provider Orthopaedic Surgery Orthopaedic Surgery of the Spine
PROC: 0SG00AJ Fusion of Lumbar Vertebral Joint with Interbody Fusion Device, Posterior Approach, Anterior Column, Open Approach (ICD-10-PCS; principal; 2023-07-08 14:45)
DX: M47.26 Other spondylosis with radiculopathy, lumbar region (principal); I42.9 Cardiomyopathy, unspecified; M48.061 Spinal stenosis, lumbar region without neurogenic claudication; G89.4 Chronic pain syndrome
CPT/HCPCS: 72100; 76000; 82962; 93005; 93010; 97116; 97162; 97530; C1713; C1831; C9290; J0171; J0690; J1100; J1170; J2250; J2405; J2704; J3010; J3410